=== PATIENT | male | born 1990 | race American Indian/Alaskan Native ===

== ENCOUNTER 2018-09-26 02:56 | Emergency (ER) | payer SELFPAY ==
[2018-09-26 03:05] VITALS: BP 137/81
[2018-09-26] MEDS ORDERED: PEPCID PO ONE (03:45)
[2018-09-26] MEDS ORDERED: LIDOCAINE VISCOUS 2% PO ONE (03:45)
[2018-09-26] MEDS ORDERED: ALUM-MAG HYDROX-SIMETH 200-200-20MG/5ML PO ONE (03:45)
--- NOTE | 2018-09-26 04:14 | Emergency Department Report ---
<MIGUELITO TORRES - Last Filed: 09/26/18 04:08> ED General Adult HPI - General Chief complaint: Chest Pain Stated complaint: ABD/CHEST PAIN Time Seen by Provider: 09/26/18 03:00 Source: patient Mode of arrival: Ambulatory Limitations: No Limitations - History of Present Illness Initial comments: Patient is a 27 yo AA male with no past medical history who presents to the ED with c/o acute onset persistent epigastric pain that radiates to the substernal right chest for the last 4 hours. Patient states that the pain is worse when he burps. Patient states that he has experienced similar symptoms before intermittently. Patient admits to eating a lot of food 8 hours ago. Patient denies dyspnea, nausea, vomiting, hematemesis, dizziness, fever, chills, headache, dysuria, sore throat, vision changes and back pain or diarrhea. MD Complaint: Abdominal pain, right-sided burning chest pain -: Sudden, hour(s) (4) Location: chest, abdomen (epigastric) Radiation: non-radiation Severity scale (0 -10): 3 Quality: burning, aching, dull Consistency: constant Improves with: none Worsens with: none Associated Symptoms: chest pain (right sided). denies: denies other symptoms, confusion, cough, diaphoresis, fever/chills, headaches, loss of appetite, malaise, nausea/vomiting, rash, seizure, shortness of breath, syncope, weakness Treatments Prior to Arrival: none - Related Data Previous Rx's Medication Instructions Recorded Last Taken Type DOXYCYCLINE Hyclate [Vibramycin 100 mg PO BID #20 capsule 04/16/13 Unknown Rx CAP] Cyclobenzaprine [Flexeril 10mg] 10 mg PO Q8H PRN #15 tablet 05/18/14 Unknown Rx HYDROcodone/APAP 5-325 [Cascade 1 each PO Q6HR PRN #12 tablet 05/18/14 Unknown Rx 5-325 mg TAB] Ibuprofen [Motrin 800 MG tab] 800 mg PO Q8H PRN #30 tablet 05/18/14 Unknown Rx Dicyclomine [Bentyl] 20 mg PO Q6H PRN #24 tablet 09/26/18 Unknown Rx Ondansetron [Zofran Odt] 4 mg PO Q8HR #15 tab.rapdis 09/26/18 Unknown Rx Ranitidine HCl [Zantac] 150 mg PO Q12H #30 tablet 09/26/18 Unknown Rx Allergies Allergy/AdvReac Type Severity Reaction Status Date / Time No Known Allergies Allergy Unverified 04/16/13 18:05 ED Review of Systems Constitutional: denies: chills, fever Eyes: denies: eye pain, eye discharge, vision change ENT: denies: ear pain, throat pain Respiratory: denies: cough, shortness of breath, wheezing Cardiovascular: chest pain (right sided burning pain). denies: palpitations, dyspnea on exertion, edema, syncope, paroxysmal nocturnal dyspnea Endocrine: no symptoms reported. denies: excessive sweating, flushing, intolerance to heat, increased hunger, increased thirst, increased urine, unexplained weight gain Gastrointestinal: abdominal pain (epigastric pain). denies: nausea, diarrhea Genitourinary: denies: urgency, dysuria Musculoskeletal: denies: back pain, joint swelling, arthralgia Skin: denies: rash, lesions Neurological: denies: headache, weakness, paresthesias Psychiatric: denies: anxiety, depression Hematological/Lymphatic: denies: easy bleeding, easy bruising ED Past Medical Hx - Past Medical History Previous Medical History?: No Additional medical history: none - Surgical History Past Surgical History?: No Additional Surgical History: none - Social History Smoking Status: Current Every Day Smoker Substance Use Type: Marijuana - Medications Home Medications: Home Medications Medication Instructions Recorded Confirmed Last Taken Type DOXYCYCLINE Hyclate [Vibramycin 100 mg PO BID #20 capsule 04/16/13 Unknown Rx CAP] Cyclobenzaprine [Flexeril 10mg] 10 mg PO Q8H PRN #15 tablet 05/18/14 Unknown Rx HYDROcodone/APAP 5-325 [Cascade 1 each PO Q6HR PRN #12 tablet 05/18/14 Unknown Rx 5-325 mg TAB] Ibuprofen [Motrin 800 MG tab] 800 mg PO Q8H PRN #30 tablet 05/18/14 Unknown Rx Dicyclomine [Bentyl] 20 mg PO Q6H PRN #24 tablet 09/26/18 Unknown Rx Ondansetron [Zofran Odt] 4 mg PO Q8HR #15 tab.rapdis 09/26/18 Unknown Rx Ranitidine HCl [Zantac] 150 mg PO Q12H #30 tablet 09/26/18 Unknown Rx ED Physical Exam - General Limitations: No Limitations General appearance: alert, in no apparent distress - Head Head exam: Present: atraumatic, normocephalic, normal inspection - Eye Eye exam: Present: normal appearance, PERRL, EOMI. Absent: scleral icterus, conjunctival injection, nystagmus, periorbital swelling, periorbital tenderness Pupils: Present: normal accommodation - ENT ENT exam: Present: normal exam, normal orophraynx, mucous membranes moist, TM's normal bilaterally, normal external ear exam - Neck Neck exam: Present: normal inspection, full ROM. Absent: tenderness, meningismus, lymphadenopathy, thyromegaly - Respiratory Respiratory exam: Present: normal lung sounds bilaterally. Absent: respiratory distress, wheezes, rales, chest wall tenderness, accessory muscle use, decreased breath sounds, prolonged expiratory - Cardiovascular Cardiovascular Exam: Present: regular rate, normal rhythm, normal heart sounds. Absent: systolic murmur, diastolic murmur, rubs, gallop - GI/Abdominal GI/Abdominal exam: Present: soft, normal bowel sounds. Absent: tenderness, guarding, rebound, rigid, hyperactive bowel sounds, hypoactive bowel sounds, organomegaly - Rectal Rectal exam: Present: deferred - Extremities Exam Extremities exam: Present: normal inspection, full ROM, normal capillary refill - Back Exam Back exam: Present: normal inspection, full ROM. Absent: tenderness, CVA tenderness (R), CVA tenderness (L), muscle spasm - Neurological Exam Neurological exam: Present: alert, oriented X3, CN II-XII intact, normal gait, motor sensory deficit, reflexes normal - Psychiatric Psychiatric exam: Present: normal affect, normal mood - Skin Skin exam: Present: warm, dry, intact, normal color. Absent: rash ED Course - Reevaluation(s) Reevaluation #1: 09/26/18 04:15 The patient is alert and oriented 3 and is not in any distress with normal vital signs. EKG shows normal sinus rhythm with ventricular rate of [address] or T-wave abnormalities. Chest x-ray shows no acute cardiopulmonary abnormalities. Patient's symptoms appear to be likely due to GERD complications given the fact that they pain is burning and appears to radiate from the epigastric area. Patient was treated in the ED with GI cocktail and Pepcid and on reevaluation, the patient's pain resolved. In reviewing the patient's past medical history and her coronary artery disease risk factors, patient does not have any coronary artery disease or risk factors including use of tobacco pro ducts. ED Medical Decision Making - EKG Data EKG shows normal: sinus rhythm Rate: normal - EKG Data Interpretation: normal EKG 09/26/18 04:18 EKG shows normal sinus rhythm with a ventricular rate of 63 bpm, and no ST or T or abnormalities, or pathological Q waves. - Radiology Data Radiology results: report reviewed, image reviewed Chest x-ray: Shows no acute cardiopulmonary abnormalities - Medical Decision Making The patient is alert and oriented 3 and is not in any distress with normal vital signs. EKG shows normal sinus rhythm with ventricular rate of [address] or T-wave abnormalities. Chest x-ray shows no acute cardiopulmonary abnormalities. Patient's symptoms appear to be likely due to GERD complications given the fact that they pain is burning and appears to radiate from the epigastric area. Patient was treated in the ED with GI cocktail and Pepcid and on reevaluation, the patient's pain resolved. In reviewing the patient's past medical history and her coronary artery disease risk factors, patient does not have any coronary artery disease or risk factors including use of tobacco products. - Differential Diagnosis GERD; Chest pain; Epigastric pain; Chest muscle strain; Costochondritis ED Disposition Clinical Impression: Epigastric abdominal pain Disposition: TO HOME OR SELFCARE Is pt being admited?: No Does the pt Need Aspirin: No Condition: Stable Instructions: Chest Pain (ED) Additional Instructions: Take medications with food, drink plenty of fluids and follow-up with her primary care physician at the outside community clinic in 5-7 days for reevaluation. Return to the ED immediately if symptoms get worse. Prescriptions: Dicyclomine [Bentyl] 20 mg PO Q6H PRN #24 tablet PRN Reason: Pain , Severe (7-10) Ranitidine HCl [Zantac] 150 mg PO Q12H #30 tablet Ondansetron [Zofran Odt] 4 mg PO Q8HR #15 tab.rapdis Referrals: [facility] [Outside] - 3-5 Days Time of Disposition: 04:22 Print Language: YI <SANIYA BURRIS - Last Filed: 09/26/18 05:31> ED Review of Systems ROS: Stated complaint: ABD/CHEST PAIN Other details as noted in HPI ED Course Vital Signs 09/26/18 09/26/18 03:02 04:57 Temperature 98.1 F Pulse Rate 77 Respiratory 20 15 Rate Blood Pressure 137/81 O2 Sat by Pulse 96 Oximetry Critical care attestation.: If time is entered above; I have spent that time in minutes in the direct care of this critically ill patient, excluding procedure time. ED Disposition Is pt being admited?: No Does the pt Need Aspirin: No
--- NOTE | 2018-09-26 04:31 | XRay Report ---
PROCEDURE: XR CHEST 1V AP TECHNIQUE: Chest radiograph single view. HISTORY: Chest Pain COMPARISONS: None . FINDINGS: Heart: Normal. Mediastinum/Vessels: Normal. Lungs/Pleural space: Normal. Bony thorax: No acute osseous abnormality. Life support devices: None. IMPRESSION: No acute cardiopulmonary abnormality. This document is electronically signed by Amanuel Wren MD., September 26 2018 04:29:53 AM ET
== END 2018-09-26 04:57 | disposition home or self-care (01) ==
LOC: ED 02:56
DX: R10.13 Epigastric pain (principal); R07.82 Intercostal pain; F17.200 Nicotine dependence, unspecified, uncomplicated; F12.10 Cannabis abuse, uncomplicated
CPT/HCPCS: 71045; 93005; 93010